=== PATIENT | female | born 1975 | race Caucasian/White ===

== ENCOUNTER 2023-04-30 07:03 | Day surgery (SDC) | payer SELFPAY ==
[2023-04-18 15:44] VITALS: BMI 32.6
[~2023-04-30 07:03] MED LIST: ACETAMINOPHEN 325 MG TABLET (FP) PO PRN; HYDROmorphone HCl 2 MG/ML VIAL IVPB PRN; LACTATED RINGERS SOLUTION 1,000 ML IV SCH; ONDANSETRON 4 MG/2 ML VIAL IVPUSH PRN; oxyCODONE HCL 5 MG TABLET PO PRN
[2023-04-30] MEDS ORDERED: MIDAZOLAM HCL 2 MG/2 ML SINGLE DOSE VIAL ONE (07:25)
[2023-04-30] MEDS ORDERED: ROCURONIUM BROMIDE 50 MG/5 ML SYRINGE ONE (07:25)
[2023-04-30] MEDS ORDERED: SUCCINYLCHOLINE CHLORIDE 200 MG/10 ML SYRINGE ONE ×2 (07:25→17:42)
[2023-04-30] MEDS ORDERED: PROPOFOL 40 ML ONE ×2 (07:25→13:04)
[2023-04-30] MEDS ORDERED: GUM MASTIC/STORAX/MSAL/ALCOHOL 1 DRP DROPSBTL MC ONE (07:26)
[2023-04-30] MEDS ORDERED: BUPIVACAINE HCL/PF 0.25% (2.5MG/ML) 10 ML VIAL ONE (07:26)
[2023-04-30] MEDS ORDERED: EPINEPHrine/PF 1 MG/1 ML (1:1,000) AMPULE ONE (07:26)
[2023-04-30] MEDS ORDERED: BUPIVACAINE HCL/PF 2.5 MG/ML - 30 ML VIAL IJ ONE ×3 (07:26→14:49)
[2023-04-30] MEDS ORDERED: LIDOCAINE HCL 1%, 10 MG/ML (20ML VIAL) ONE (07:26)
[2023-04-30] MEDS ORDERED: PROPOFOL 60 ML ONE (07:30)
[2023-04-30] MEDS ORDERED: BACITRACIN ZINC 15 GM TUBE TOPICAL OINTMENT ONE (08:11)
[2023-04-30] MEDS ORDERED: ACETAMINOPHEN INJECTION 100 ML IVPB ONE (08:18)
[2023-04-30] MEDS ORDERED: HYDROmorphone HCL/PF 1 MG/ML VIAL ONE ×3 (09:15→14:27)
[2023-04-30] MEDS ORDERED: oxyCODONE HCL 5 MG TABLET PO PRN ×2 (10:38)
[2023-04-30] MEDS ORDERED: ONDANSETRON 4 MG/2 ML VIAL IVPUSH PRN (10:38)
[2023-04-30] MEDS ORDERED: LACTATED RINGERS SOLUTION 1,000 ML IV SCH (10:45)
[2023-04-30] MEDS ORDERED: ePHEDrine SULFATE 50 MG/1 ML AMPULE ONE (11:28)
[2023-04-30] MEDS ORDERED: ONDANSETRON 4 MG/2 ML VIAL ONE (13:04)
[2023-04-30] MEDS ORDERED: DEXAMETHASONE SOD PHOSPHATE 4 MG/1 ML VIAL ONE (13:04)
[2023-04-30] MEDS ORDERED: ceFAZolin SODIUM 1 GM VIAL ONE (13:04)
[2023-04-30] MEDS ORDERED: LIDOCAINE HCL/PF 2% SDV 5ML VIAL ONE (13:04)
[2023-04-30] MEDS ORDERED: PROPOFOL 20 ML ONE ×2 (14:45→15:01)
[2023-04-30] MEDS: CEFAZOLIN 1 GM in DEXTROSE 5%-WATER - 50 ML IVPB SCH ×2 (18:06→18:29)
[2023-04-30] MEDS: DOCUSATE SODIUM 100 MG CAPSULE (FP) PO SCH ×2 (18:06→21:29)
[2023-04-30] MEDS: oxyCODONE HCL 5 MG TABLET PO PRN ×2 (18:28→21:33)
[2023-05-01] MEDS: CEFAZOLIN 1 GM in DEXTROSE 5%-WATER - 50 ML IVPB SCH ×2 (02:28→09:22)
[2023-05-01] MEDS: oxyCODONE HCL 5 MG TABLET PO PRN ×3 (06:38→15:51)
[2023-05-01] MEDS: DOCUSATE SODIUM 100 MG CAPSULE (FP) PO SCH (09:22)
[2023-05-01 09:23] VITALS: RESP 18
[2023-05-01] MEDS ORDERED: ENOXAPARIN NA (PORCINE) 40 MG/0.4 ML DISP.SYRIN SQ ONE (14:15)
[2023-05-01 14:24] VITALS: BP 106/52; PULSE 73; TEMP 98.5
== END 2023-05-01 18:04 | disposition home or self-care (01) ==
LOC: FASU 07:03 → FM/S 16:31 → FASU 05-01 18:04
PROVIDERS: ATTEND Surgery
CPT/HCPCS: 84703; 94760